=== PATIENT | female | born 1970 | race Hispanic/Latino ===

== ENCOUNTER 2021-01-10 20:10 | Inpatient (IN) | payer SELFPAY ==
[2021-01-10 23:06] VITALS: BMI 34.7
[2021-01-10] MEDS ORDERED: Morphine 4 MG/ML VIAL SLOW IVP PRN (23:06)
[2021-01-10] MEDS ORDERED: Ondansetron ODT 4 MG TAB PO PRN (23:08)
[2021-01-10] MEDS ORDERED: Acetaminophen 500 MG TAB PO PRN (23:08)
[2021-01-10] MEDS ORDERED: Ketorolac Tromethamine 30 MG/ML VIAL IVP PRN (23:09)
[2021-01-10] MEDS ORDERED: Enoxaparin Sodium 40 MG/0.4 ML SYRINGE SC SCH (23:15)
[2021-01-10] MEDS: Ondansetron PF 4 MG/2 ML Vial IVP PRN (23:16)
[2021-01-10] MEDS: Lactated Ringer's 1,000 ML IV SCH (23:16)
[2021-01-11] MEDS: metroNIDAZOLE 750 MG in Admixture Fee 1 EACH IVPB SCH ×3 (00:30→17:28)
[2021-01-11] MEDS ORDERED: metroNIDAZOLE 750 MG in Admixture Fee 1 EACH IVPB SCH (01:00)
[2021-01-11] MEDS: Lactated Ringer's 1,000 ML IV SCH ×3 (08:54→19:53)
[2021-01-11] MEDS ORDERED: FLU VACC QS2021-22(6MOS UP)/PF 60 MCG/0.5 ML SYRINGE IM ONE (09:00)
[2021-01-11 09:35] LABS: #Eosinphils 0.1 thou/uL (0.0-0.7); #Lymphocytes 1.7 thou/uL (1.20-3.40); #Monocytes 0.4 thou/uL (0.11-0.59); #Neutrophils 5.6 thou/uL (1.40-6.50); %Basophils 0.1 % (0.0-1.0); %Lymphocytes 21.8 % (21.0-51.0); %Monocytes 5.1 % (0.0-10.0); Hemoglobin 11.9 g/dL (12.0-16.0); Mean Corpuscular HGB CONC 32.8 g/dL (32.0-36.0); Mean Corpuscular Hemoglobin 30.3 pg (27.0-31.0); Mean Corpuscular Volume 92.5 fL (78.0-98.0); Mean Platelet Volume 7.8 fL (7.4-10.4); Platelet Count 249 thou/uL (130-400); RBC Distribution Width 12.6 % (11.5-14.5); Red Blood Cell (RBC) Count 3.93 mill/uL (4.20-5.40); White Blood Cell (WBC) Count 7.8 thou/uL (4.8-10.8)
[2021-01-11 09:45] LABS: INR-International Normal Ratio 1.2; Prothrombin Time 15.6 sec (12.0-14.7)
[2021-01-11 09:46] LABS: PTT 33.4 sec (22.9-36.1)
[2021-01-11] MEDS: Enoxaparin Sodium 40 MG/0.4 ML SYRINGE SC SCH (19:53)
[2021-01-12] MEDS: metroNIDAZOLE 750 MG in Admixture Fee 1 EACH IVPB SCH ×3 (00:51→16:27)
[2021-01-12 05:58] LABS: #Eosinphils 0.1 thou/uL (0.0-0.7); #Lymphocytes 1.1 thou/uL (1.20-3.40); #Monocytes 0.3 thou/uL (0.11-0.59); #Neutrophils 7.9 thou/uL (1.40-6.50); %Basophils 0.3 % (0.0-1.0); %Eosinophils 0.5 % (0.0-10.0); %Lymphocytes 12.1 % (21.0-51.0); %Monocytes 3.5 % (0.0-10.0); %Neutrophils 83.6 % (42.0-75.0); Hemoglobin 12.2 g/dL (12.0-16.0); Mean Corpuscular HGB CONC 33.3 g/dL (32.0-36.0); Mean Corpuscular Hemoglobin 30.9 pg (27.0-31.0); Mean Corpuscular Volume 92.7 fL (78.0-98.0); Mean Platelet Volume 7.6 fL (7.4-10.4); Platelet Count 246 thou/uL (130-400); RBC Distribution Width 12.5 % (11.5-14.5); Red Blood Cell (RBC) Count 3.94 mill/uL (4.20-5.40); White Blood Cell (WBC) Count 9.4 thou/uL (4.8-10.8)
[2021-01-12 06:18] LABS: Anion Gap 14 mmol/L (10-20); BUN (Urea Nitrogen) 7 mg/dL (9.8-20.1); Calc. Creatinine Clearance 139 mL/min (70-130); Calcium 8.5 mg/dL (7.8-10.44); Carbon Dioxide 23 mmol/L (22-29); Chloride 103 mmol/L (98-107); Glucose 72 mg/dL (70-105); Potassium 3.8 mmol/L (3.5-5.1); Sodium 136 mmol/L (136-145)
[2021-01-12] MEDS: Lactated Ringer's 1,000 ML IV SCH ×3 (08:34→23:50)
[2021-01-12] MEDS: Ondansetron PF 4 MG/2 ML Vial IVP PRN (18:56)
[2021-01-12] MEDS: Enoxaparin Sodium 40 MG/0.4 ML SYRINGE SC SCH (21:41)
[2021-01-13] MEDS: metroNIDAZOLE 750 MG in Admixture Fee 1 EACH IVPB SCH ×3 (03:24→16:51)
[2021-01-13] MEDS: Lactated Ringer's 1,000 ML IV SCH ×3 (10:15→23:36)
[2021-01-13] MEDS: Enoxaparin Sodium 40 MG/0.4 ML SYRINGE SC SCH (21:31)
[2021-01-14] MEDS: metroNIDAZOLE 750 MG in Admixture Fee 1 EACH IVPB SCH ×3 (01:35→18:23)
[2021-01-14] MEDS: Lactated Ringer's 1,000 ML IV SCH ×3 (09:37→21:54)
[2021-01-14] MEDS: Enoxaparin Sodium 40 MG/0.4 ML SYRINGE SC SCH (21:54)
[2021-01-15] MEDS: metroNIDAZOLE 750 MG in Admixture Fee 1 EACH IVPB SCH ×3 (01:47→18:51)
[2021-01-15] MEDS: Lactated Ringer's 1,000 ML IV SCH ×3 (09:40→23:39)
[2021-01-15] MEDS: Enoxaparin Sodium 40 MG/0.4 ML SYRINGE SC SCH (21:01)
[2021-01-16] MEDS: metroNIDAZOLE 750 MG in Admixture Fee 1 EACH IVPB SCH ×2 (01:33→08:02)
[2021-01-16] MEDS: Lactated Ringer's 1,000 ML IV SCH (08:01)
[2021-01-16 14:12] VITALS: BP 112/77; TEMP 97.9
== END 2021-01-16 14:05 | disposition home or self-care (01) | DRG 392 ==
LOC: SJJU 20:10
PROVIDERS: ADMIT Specialist; ATTEND Specialist
DX: K57.20 Diverticulitis of large intestine with perforation and abscess without bleeding (principal); Z20.822 Contact with and (suspected) exposure to COVID-19; I10 Essential (primary) hypertension; Z88.5 Allergy status to narcotic agent; Z88.8 Allergy status to other drugs, medicaments and biological substances; Z88.0 Allergy status to penicillin; Z90.710 Acquired absence of both cervix and uterus; Z90.49 Acquired absence of other specified parts of digestive tract
CPT/HCPCS: 36415; 80048; 85025; 85610; 85730; J1650; J1956; J2270; J2405; J7120